=== PATIENT | male | born 1980 | race Caucasian/White ===

== ENCOUNTER 2023-11-03 07:01 | Emergency (ER) | payer SELFPAY ==
[~2023-11-03] VITALS: Ht 172.7 cm; Wt 73.0 kg
[2023-11-03 07:09] VITALS: O2SAT 100
[2023-11-03] MEDS ORDERED: ACETAMINOPHEN 325MG TABLET PO ONE (08:00)
[2023-11-03] MEDS ORDERED: TOPUD PO (08:58)
[2023-11-03 09:32] VITALS: BP 162/90; PULSE 78; RESP 16; TEMP 98.1
== END 2023-11-03 09:42 | disposition home or self-care (01) ==
LOC: ER 07:44
DX: M79.642 Pain in left hand (principal); M79.10 Myalgia, unspecified site
CPT/HCPCS: 73030; 73130; 73590; 99284